=== PATIENT | female | born 1975 | race Caucasian/White ===

== ENCOUNTER 2022-12-19 07:30 | Outpatient (RCR) | payer SELFPAY ==
--- NOTE | 2022-12-05 10:40 | HP.OTEVAL_ITS ---
Patient's Visit Information ELIESER MCDERMOTT is a 47 year old F, referred to Occupational Therapy by KJ SANTANA, with a diagnosis of L/R radial tunnel syndrome. Date of Evaluation: 12/05/22 Occupational Therapist: Rhonda Corrigan, BHASKAR/Keely, CHT - Subjective This 47 year old female was seen for OT eval with dx of radial tunnel syndrome, radial tunnel syndrome right/left. pt states she has difficulty with tingling and numbness for months prior to having left endoscopic carpal tunnel release open radial tunnel release and extensor carpi radialis brevis tenotomy on 08/14/2022. pt states she will have her right elbow done in Jun 2023 as her will be home to help. pt states she has held off on therapy due to some personal issues she had after her left elbow sx. states she is doing better. 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 Household: Vacuum, Laundry Miscellaneous: Shuffle cards - Pain right elbow 2 Pain Intensity Range: 3, 4 left elbow 0 Pain Intensity Range: 1 - ROM Wrist: right 70/65 left 65/65 ( pulling sensation) ROM Comments: pt demo full ROM WNL - Strength Elbow: right biceps 29# triceps 24# left biceps 26# triceps 22# Wrist: right ext 12# left 10# Defensive Driving Instructor: right 55# left 35# Lateral Pinch: right 10# left 10# Tripod Pinch: right 12# left 10# - Sensation Thumb: Right 2.83 left 2.83 Index: Right 2.83 left 2.83 Middle: Right 2.83 left 2.83 Ring: Right 2.83 left 2.83 Little: Right 2.83 left 2.83 - Nine Hole Peg Right: 18.91 sec. Left: 19.64 sec. - Quick DASH-Disab of Arm,Shoulder& Hand Quick DASH Score: 36.3625 - Goals Goal:Daily scar massage when approriate: Yes Comment: left elbow Goal:ROM equal to unaffected hand: Yes Comment: left wrist ROM Goal:Defensive Driving Instructor/Pinch strength at least 75% of unaffected hand: Yes Goal:No pain with affected hand use: Yes Goal:Full use of affected hand in daily activities including: Yes Other Goal: postural strengthening/correction - Rehabilitation General Assessment: pt demo with symptoms of radial tunnel syndrome right UE and left UE weakness following her sx. due to weakness/pain pt limited with her ADls and IADLs at this time. Pt would benefit from skilled OT services 1-2x week for 6 weeks to return pt to her PLOF. Pt demo understanding and agree to POC. Rehabilitation Potential: Good - Anticipated Interventions A/AAROM/PROM, Strengthening, Triggerpoint Release, Joint Protection/Energy Conservation, Ergonomic Education, Fine Motor Coord/Hakan, Education re Diagnosis, Home Program - Visit Plan Frequency: 2x /Week Duration: 6 Weeks General Plan: initiate nerve glide. PRE as tolerated. postural strengthening- t-band and free wts TEXT: Thank you for the opportunity to evaluate your patient. For Medicare and Medicare HMO plans, please review the plan of care and approve it. It will need to be FAXED BACK to us at [phone] for Medicare purposes. Please let me know if there are questions or concerns regarding this plan of care. Physician Signature: Date:
--- NOTE | 2023-02-13 12:07 | HP.OT.NRP ---
Patient Information Patient Information: ELIESER MCDERMOTT was seen in my office for initial evaluation on 12/05/22. The following Plan of Care was established for this patient: POC Established Initial Frequency: 2x /Week Initial Duration: 6 Weeks Plan: may add wrist /forearm to HEP if pt doing well with her T-band. Anticipated Interventions Anticipated Interventions: A/AAROM/PROM, Strengthening, Triggerpoint Release, Joint Protection/Energy Conservation, Ergonomic Education, Fine Motor Coord/Hakan, Education re Diagnosis and Home Program Last Seen Last Seen: This patient was last seen in our office 12/19/22. Pertinent comments regarding their Occupational therapy will appear below: pt was seen 3 OT sessions and at this time due to time lapse in services pt is d.c. At this point I will be discontinuing this patient from occupational therapy. I would be happy to see this patient again in the future if found appropriate by the physician. Thank you! Rhonda Corrigan, OTR/L, CHT
== END 2022-12-19 19:00 | disposition home or self-care (01) ==
LOC: OT 07:30
PROVIDERS: PCP Nurse Practitioner Family
DX: G56.31 Lesion of radial nerve, right upper limb (principal); G56.32 Lesion of radial nerve, left upper limb
CPT/HCPCS: 97110; 97140; 97166